=== PATIENT | male | born 1990 | race Hispanic/Latino ===

== ENCOUNTER 2022-09-30 07:47 | Emergency (ER) | payer SELFPAY ==
[2022-09-30] MEDS ORDERED: Acetaminophen 500 MG TAB ONE (07:54)
[2022-09-30] MEDS ORDERED: Ibuprofen 800 MG TAB ONE (07:54)
[2022-09-30 08:25] LABS: #Neutrophils 5.6 thou/uL (1.40-6.50); %Basophils 0.1 % (0.0-1.0); %Eosinophils 0.3 % (0.0-10.0); %Lymphocytes 13.4 % (21.0-51.0); %Neutrophils 73.2 % (42.0-75.0); Hemoglobin 14.7 g/dL (14.0-18.0); Mean Corpuscular HGB CONC 34.4 g/dL (32.0-36.0); Mean Corpuscular Hemoglobin 32.1 pg (27.0-31.0); Mean Corpuscular Volume 93.1 fl (78.0-98.0); Mean Platelet Volume 7.7 fL (7.4-10.4); Platelet Count 258 10x3/uL (130-400); RBC Distribution Width 11.7 % (11.5-14.5); Red Blood Cell (RBC) Count 4.58 mill/uL (4.70-6.10); White Blood Cell (WBC) Count 7.7 10x3/uL (4.8-10.8)
[2022-09-30 08:45] LABS: ALT (SGPT) 56 U/L (8-55); AST (SGOT) 46 U/L (5-34); Albumin 4.3 g/dL (3.5-5.0); Alkaline Phosphatase 86 U/L (40-110); Anion Gap 15 mmol/L (10-20); BUN (Urea Nitrogen) 10 mg/dL (8.9-20.6); Bilirubin, Total 0.4 mg/dL (0.2-1.2); Calc. Creatinine Clearance 0 mL/min (70-130); Calcium 8.8 mg/dL (7.8-10.44); Carbon Dioxide 20 mmol/L (22-29); Chloride 103 mmol/L (98-107); Estimated GFR 91; Globulin 3.3 g/dL (2.4-3.5); Glucose 144 mg/dL (70-105); Potassium 3.7 mmol/L (3.5-5.1); Protein, Total 7.6 g/dL (6.0-8.3); Sodium 134 mmol/L (136-145)
== END 2022-09-30 09:38 | disposition home or self-care (01) ==
LOC: ERS 07:47
DX: J06.9 Acute upper respiratory infection, unspecified (principal); R74.01 Elevation of levels of liver transaminase levels; F17.210 Nicotine dependence, cigarettes, uncomplicated
CPT/HCPCS: 36415; 71045; 80053; 83605; 85025; 87040; 87804

== ENCOUNTER 2024-10-29 15:08 | Outpatient (CLI) | payer OTHER | END 2024-10-29 15:09 | disposition home or self-care (01) | LOC: ULT 15:08 | PROVIDERS: ATTEND Nurse Practitioner Family | DX: R22.1 Localized swelling, mass and lump, neck (principal); R22.0 Localized swelling, mass and lump, head; M79.89 Other specified soft tissue disorders | CPT/HCPCS: 76536 ==